=== PATIENT | male | born 1935 | race Caucasian/White ===

== ENCOUNTER 2017-02-11 15:48 | Observation (INO) | payer OTHER, MEDICARE ==
[~2017-02-11] VITALS: Ht 175.3 cm; Wt 94.7 kg
[~2017-02-11 15:48] MED LIST: ASPIR 8181 M1 PO; ATENOLOL50 MG PO; Aggrenox PO; Aspirin PO; BABY ASPIRIN81 M1 PO; CINNAMON500 MG PO; CLOPIDOGREL75 MG PO; Cinnamon Bark PO; Ecotrin PO; FISH OIL 1,0001 EAC7 PO; FISH OIL SOFTG1 EACH PO; Fish Oil PO; Glucophage PO; HYDROCHLOROTH12.5 M3 PO; Hydrodiuril,Oretic,E PO; ISOSORBIDE MONO30 MG PO; LISINOPRIL40 MG PO; METFORMIN HCL500 MG PO; NEURONTIN300 MG PO; Neurontin PO; Senokot S,Pericolace PO; Tenormin PO; Vicodin,Norco 5/325 PO; ZOCOR40 MG PO; Zestril,Prinivil PO; Zocor PO; celeBREX PO
[2017-02-11 16:24] LABS: HEMATOCRIT 40.4 % (38.0-50.0); MCH 29.4 PG (29.0-34.0); MCHC 33.4 G/DL (30.0-36.0); MEAN PLAT.VOLUME 10.7 uM^3 (9.0-12.4); PLATELET COUNT 182 K/uL (156-360); RBC DIS.WIDTH-CV 13.2 % (11.8-14.6); RBC DIS.WIDTH-SD 42.5 % (39-53); RED BLOOD COUNT 4.59 M/uL (4.00-5.50); WHITE BLOOD COUNT 5.6 K/uL (4.1-10.2)
[2017-02-11 16:33] LABS: CHLORIDE 102 mEq/L (99-109); POTASSIUM 3.9 mEq/L (3.7-5.4); SODIUM 138 mEq/L (136-147)
[2017-02-11 16:35] LABS: GLUCOSE 224 mg/dL (70-99)
[2017-02-11 16:36] LABS: ANION GAP 10 MEQ/L (2-14)
[2017-02-11 16:39] LABS: GFR ESTIMATE (CALCULATED) > 59 mL/min/
[2017-02-11 16:40] LABS: UREA NITROGEN (BUN) 19 mg/dL (9-23)
[2017-02-11 16:48] LABS: TROP-I INTERPRETATION NEGATIVE; TROPONIN-I < 0.01 ng/mL (0.0-0.30)
[2017-02-11] MEDS ORDERED: VITAMIN D31000 UNI2 PO (17:38)
[2017-02-11] MEDS ORDERED: CINNAMON500 MG PO (17:39)
[2017-02-11] MEDS ORDERED: FISH OIL 1,2001 EAC3 PO (17:39)
[2017-02-11 21:32] VITALS: BP 144/80
[2017-02-11 23:08] LABS: POINT-OF-CARE METER ID UU13113700
[2017-02-12 00:05] LABS: TROP-I INTERPRETATION NEGATIVE; TROPONIN-I < 0.01 ng/mL (0.0-0.30)
[2017-02-12 01:13] VITALS: BP 101/50
[2017-02-12 04:00] VITALS: BP 94/53
[2017-02-12 06:08] LABS: TROP-I INTERPRETATION NEGATIVE; TROPONIN-I < 0.01 ng/mL (0.0-0.30)
[2017-02-12 06:27] LABS: HEMATOCRIT 34.9 % (38.0-50.0); MCH 29.7 PG (29.0-34.0); MCHC 33.5 G/DL (30.0-36.0); MCV 88.6 FL (86-99); MEAN PLAT.VOLUME 10.7 uM^3 (9.0-12.4); PLATELET COUNT 159 K/uL (156-360); RBC DIS.WIDTH-CV 13.2 % (11.8-14.6); RBC DIS.WIDTH-SD 42.8 % (39-53); RED BLOOD COUNT 3.94 M/uL (4.00-5.50); WHITE BLOOD COUNT 4.3 K/uL (4.1-10.2)
[2017-02-12 07:00] VITALS: BP 103/59
[2017-02-12 07:43] LABS: METH RESISTANT S AUREUS PCR NEGATIVE (NEGATIVE)
[2017-02-12 07:46] LABS: PROBE CHECK PASS; SPECIMEN PROCESSING CONTROL PASS
[2017-02-12 08:00] LABS: CHLORIDE 104 mEq/L (99-109); POTASSIUM 3.6 mEq/L (3.7-5.4); SODIUM 139 mEq/L (136-147)
[2017-02-12 08:03] LABS: ANION GAP 10 MEQ/L (2-14)
[2017-02-12 08:04] LABS: TOTAL BILIRUBIN 0.4 mg/dL (0.0-1.0)
[2017-02-12 08:06] LABS: ALKALINE PHOSPHATASE 69 IU/L (3-129); GFR ESTIMATE (CALCULATED) > 59 mL/min/
[2017-02-12 08:07] LABS: UREA NITROGEN (BUN) 24 mg/dL (9-23)
[2017-02-12 08:09] LABS: GLUCOSE 111 mg/dL (70-99)
[2017-02-12 10:58] VITALS: BP 108/59
[2017-02-12 12:23] LABS: POINT-OF-CARE METER ID UU14162513
[2017-02-12] MEDS ORDERED: IBUPROFEN600 MG PO (14:51)
[2017-02-12 15:12] VITALS: BP 154/75
== END 2017-02-12 15:15 | disposition home or self-care (01) ==
LOC: EME 15:48 → 5WEST 18:38 → EDOF 18:38 → 5WEST 21:12
PROVIDERS: Internal Medicine; Student in an Organized Health Care Education/Training Program
DX: R07.89 Other chest pain (principal); E11.9 Type 2 diabetes mellitus without complications; I10 Essential (primary) hypertension; E78.5 Hyperlipidemia, unspecified; I25.10 Atherosclerotic heart disease of native coronary artery without angina pectoris; Z86.73 Personal history of transient ischemic attack (TIA), and cerebral infarction without residual deficits; G43.909 Migraine, unspecified, not intractable, without status migrainosus; Z95.5 Presence of coronary angioplasty implant and graft; Z85.46 Personal history of malignant neoplasm of prostate
CPT/HCPCS: 71020; 80048; 80053; 82948; 84484; 85027; 85379; 87641; 93005; 99281; 99284; G0378; J1644; J1815; J1885; S0028

== ENCOUNTER 2017-07-22 15:55 | Emergency (ER) | payer OTHER, MEDICARE ==
[~2017-07-22] VITALS: Ht 175.3 cm; Wt 94.0 kg
[~2017-07-22 15:55] MED LIST changes: +FISH OIL 1,2001 EAC3 PO; +IBUPROFEN600 MG PO; +VITAMIN D31000 UNI2 PO
[2017-07-22] MEDS ORDERED: TYLENOL WITH C1 EACH PO (20:55)
[2017-07-22 21:15] VITALS: BP 188/92
== END 2017-07-22 21:16 | disposition home or self-care (01) ==
LOC: EME 15:55
DX: S30.0XXA Contusion of lower back and pelvis, initial encounter (principal); S20.212A Contusion of left front wall of thorax, initial encounter; W01.198A Fall on same level from slipping, tripping and stumbling with subsequent striking against other object, initial encounter; Z79.01 Long term (current) use of anticoagulants; I10 Essential (primary) hypertension; E78.5 Hyperlipidemia, unspecified; E11.9 Type 2 diabetes mellitus without complications; Z79.84 Long term (current) use of oral hypoglycemic drugs; I25.2 Old myocardial infarction; Z86.73 Personal history of transient ischemic attack (TIA), and cerebral infarction without residual deficits; Z85.46 Personal history of malignant neoplasm of prostate; Z88.0 Allergy status to penicillin; Z87.891 Personal history of nicotine dependence
CPT/HCPCS: 71020; 99281; 99284